=== PATIENT | male | born 1955 | race American Indian/Alaskan Native ===

== ENCOUNTER → 2017-10-23 09:17 | Outpatient (CLI) | payer SELFPAY ==
--- NOTE | 2017-10-23 | DI.RAD.S_ITS ---
PROCEDURE: XR HIP W PEL IF DONE RT 2V INDICATIONS: RIGHT HIP PAIN TECHNIQUE: AP pelvis with lateral view(s) of the right hip(s). COMPARISON: [facility], , PELVIS W UNILATERAL HIP RIGHT, 11/04/2014, 15:43. FINDINGS: Bones: No fractures or dislocations. Pelvic ring appears intact. No suspicious bony lesions. Joint spaces appear maintained. Minimal acetabular lipping bilaterally. Soft tissues: The visualized bowel gas pattern is normal. No suspicious soft tissue calcifications. IMPRESSION: 1. No acute bony abnormality. 2. No apparent interval change from prior exam of 2014. Mild hip joint degeneration is present. Dictated by: Jr Cherry M.D. on 10/23/2017 at 9:43 Approved by: Jr Cherry M.D. on 10/23/2017 at 9:46
== END ==
PROVIDERS: Visit Provider Physician Assistant
DX: M25.551 Pain in right hip (principal); M16.11 Unilateral primary osteoarthritis, right hip
CPT/HCPCS: 73502

== ENCOUNTER → 2018-03-05 14:22 | Outpatient (CLI) | payer OTHER, SELFPAY ==
[2018-03-05 15:03] LABS: Add Manual Diff / Slide Review NO; Basophils Percent Auto 0.9 % (0-2); Eosinophils Percent Auto 2.9 % (2-4); Hemoglobin 15.8 g/dL (13.5-17.5); Lymphocytes Percent Auto 44.4 % (25-40); Mean Corpuscular HGB Conc 34.3 % (30-36); Mean Corpuscular Hemoglobin 32.3 PG (26-34); Mean Corpuscular Volume 94.1 fL (80-100); Monocytes Percent Auto 10.7 % (3-14); Neutrophils Absolute Auto 4000 /uL (1500-7000); Neutrophils Percent Auto 41.1 % (50-75); Platelet Count 297 X10^3/uL (150-400); Red Cell Distribution Width 13.1 % (11.6-14.8); White Blood Cell Count 9.7 X10^3/uL (4.5-11.0)
== END ==
PROVIDERS: Family Provider Internal Medicine; PCP Internal Medicine; Visit Provider Orthopaedic Surgery
DX: Z01.818 Encounter for other preprocedural examination (principal)
CPT/HCPCS: 36415; 85025; 93005

== ENCOUNTER 2018-03-09 10:38 | Day surgery (SDC) | payer OTHER, SELFPAY ==
[2018-03-07 10:48] VITALS: BMI 30.8
[2018-03-09] VITALS (9 sets, daily range): BP systolic 103–141; BP diastolic 51–87; PULSE 59–88; RESP 14–28; TEMP 36–37; O2SAT 90–98; BMI 30.8
--- NOTE | 2018-03-09 | DI.RAD.S_ITS ---
PROCEDURE: XR LUMBAR SPINE 2-3V INDICATIONS: L4-5 MICRODISCECTOMY TECHNIQUE: 2 views of the lumbar spine were acquired. COMPARISON: [facility] [place], CR, XR LUMBAR SPINE FLEXION EXTENSION, 12/14/2017, 14:09. [facility] [place], MR, MR LUMBAR SPINE WITHOUT CONTRAST, 11/14/2017, 10:29. FINDINGS: Intraoperative images demonstrate surgical localization along the posterior aspect of L4-5. Osseous structures demonstrate no visualized fracture. There is trace retrolisthesis of L3 on L4-L4 on L5. IMPRESSION: Intraoperative localization as above. Dictated by: Brisa Liang M.D. on 03/09/2018 at 16:44 Approved by: Brisa Liang M.D. on 03/09/2018 at 16:45
[2018-03-09] MEDS: LACTATED RINGERS 1,000 ML 42 ML IV (11:12)
--- NOTE | 2018-03-09 11:25 | PM.PREOP ---
Pre-operative Note Interval Note History & Physical reviewed/Exam performed by Physician: Yes Changes to H&P: No
[2018-03-09] MEDS: CEFAZOLIN 2 GM/100 ML FROZ.PIGGY IV (11:57)
--- NOTE | 2018-03-09 12:28 | SUR.OPER ---
Prone on spine table, head in foam head support, padded chest and pelvic supports, gel pad at knees, lower legs supported by pillows; nipples, genitalia and toes free of pressure, arms secured on foam padded arm boards at <90 degrees abduction. Tape over blanket at thigh secured to table.
[2018-03-09] MEDS: SODIUM CHLORIDE 0.9% 1,000 ML, GENTAMICIN 80 MG IRR (12:35)
[2018-03-09] MEDS: BUPIVACAINE 0.25% (PF) 8 ML, fentaNYL 100 MCG INJ (12:37)
[2018-03-09] MEDS: THROMBIN (BOVINE) 5,000 UNIT VIAL 5000 UNIT TOP (12:53)
[2018-03-09] MEDS: VANCOMYCIN 1,000 MG VIAL 1000 MG TOP (13:05)
--- NOTE | 2018-03-09 13:19 | PM.OP.1 ---
Operative Date/Time/Diagnoses Date of procedure: 03/09/18 Time of procedure: 13:19 Pre-op diagnosis: L4-5 disc herniation with radiculopathy Post-op diagnosis: same Procedure & Clinicians Procedure: Far lateral right L4-5 diskectomy Use of microscope Placement of epidural catheter Same procedure as scheduled: Yes Indications: [age] year old male with intractable pain from a lumbar disc herniation. They had failed conservative management and requested operative intervention. Risks and benefits of surgery were discussed and appropriate consents were obtained. Surgeon: Brandon Tai E [employer] Specialist: Andree Arreola Anesthesia Type: General Operative Notes Findings: None Closure Type: primary Specimen(s): none sent Estimated Blood Loss (mL): 10 Procedure in detail: Patient was brought to the operating room and intubated on the table. A time-out was performed. There were rolled over the well-padded prone position on the Armando table. The back was prepped and draped in standard sterile fashion. Preoperative antibiotics were given. Using fluoroscopy, a 3 cm incision was made to the well-marked right of the midline at the L4-5 level, just lateral to the pedicles. We used Bovie to come down to and split the fascia. We then used the NuVasive MaXcess dilators with fluoroscopy, docking them over the facet, and then opened our retractors. The soft tissue was cleared off with Bovie, a marker was placed, an x-ray was taken to confirm positioning. We then brought in the microscope. We cleared off the rest of the soft tissue. The very edge of the facet was trimmed down with the bur and we deepened our retractor. We exposed the transverse process and then freed the transverse ligament from the transverse process to the pars to the facet below. This was cleared with bipolar and then peeled back laterally. We cleared through the soft tissue underneath until we could easily identify our nerve root as well as the disc. Bipolar was used to prep the disc. The nerve root was carefully retracted and a scalpel used to perform an annulotomy and a pituitary was used to perform the diskectomy. Most of this was far lateral but there was a component going to the foramen itself that we cleared out. The ball probe was moved through the disc to make sure there were no further loose fragments. In the end we could easily pass the ball probe through the foramen towards the canal and the nerve root was free to manipulate with no pressure on it. The wound was irrigated. An epidural catheter was filled with 100 mcg of fentanyl and 8 mL of 0.25% Marcaine. We slid this up along the nerve root into the canal and advanced it 6 cm cephalad. The retractor was removed and the fascia was closed. The epidural catheter was then injected without resistance and removed. Vancomycin powder was placed in the wound. Superficial and skin were closed. Sterile dressing was placed. The patient was then rolled over, transferred to the stretcher, and brought to recovery room without complications. Complications: none Condition: stable Disposition: PACU Plan for aftercare: Outpatient. Light activity for 2 weeks then begin physical therapy.
--- NOTE | 2018-03-09 13:40 | SUR.PHASEI ---
With waking a more than usual amount of coughing. LS clear. Once awake enough given sips of water that were tolerated well. Coughing quickly lessening.
--- NOTE | 2018-03-09 14:43 | SUR.PHASEII ---
IV d/c'd at this time, catheter intact, pt discharged home
== END 2018-03-09 14:46 | disposition home or self-care (01) ==
PROVIDERS: Family Provider Internal Medicine; PCP Internal Medicine; Visit Provider Orthopaedic Surgery
PROC: (CPT 63030; principal; 2018-03-09 12:15)
DX: M51.16 Intervertebral disc disorders with radiculopathy, lumbar region (principal); M48.062 Spinal stenosis, lumbar region with neurogenic claudication; I10 Essential (primary) hypertension; F33.41 Major depressive disorder, recurrent, in partial remission; Z87.891 Personal history of nicotine dependence
CPT/HCPCS: 63030; 72100; 76000; J0690; J2250; J2405; J2704; J3010

== ENCOUNTER 2018-04-04 14:43 | Inpatient (IN) | payer OTHER, SELFPAY ==
[2018-04-04] VITALS (11 sets, daily range): BP systolic 104–150; BP diastolic 68–93; PULSE 57–84; RESP 10–22; TEMP 36.3–36.7; O2SAT 91–99; BMI 29.4
[2018-04-04] MEDS: LACTATED RINGERS 1,000 ML 42 ML IV (15:21)
--- NOTE | 2018-04-04 15:31 | SUR.PREOP ---
Pt's daughter to call with pt's cholesterol and acid reflux medication
--- NOTE | 2018-04-04 15:39 | PM.PREOP ---
Pre-operative Note Interval Note History & Physical reviewed/Exam performed by Physician: Yes Changes to H&P: No
--- NOTE | 2018-04-04 16:02 | SUR.OPER ---
Prone on padded OR bed, head in foam head support, gel chest rolls, gel pad under knees, pillow under lower legs, toes free of pressure, arms secured on padded arm boards at <90 degrees abduction. Safety belt at thigh.
[2018-04-04] MEDS: CEFAZOLIN 2 GM/100 ML FROZ.PIGGY IV ×2 (16:04→23:35)
--- NOTE | 2018-04-04 16:22 | PM.OP.1 ---
Operative Date/Time/Diagnoses Date of procedure: 04/04/18 Time of procedure: 16:22 Pre-op diagnosis: Postoperative lumbar wound infection Post-op diagnosis: same Procedure & Clinicians Procedure: Irrigation and debridement of lumbar wound infection Same procedure as scheduled: Yes Indications: 62-year-old male had a lumbar discectomy a few weeks ago. He began having some wound drainage. It was felt that he probably had a superficial infection and would best be served by a washout. Risks and benefits of surgery were discussed and appropriate consent obtained. Risks and benefits of surgery were discussed including not limited to medical risk with heart attack, stroke, , DVT, PE, infection, bleeding, scarring, nerve injury with pain numbness weakness paralysis, nonunion, failure to alleviate symptoms, need for further surgery Click Yes if Unassisted: Yes Anesthesia Type: General Operative Notes Findings: None Closure Type: primary Specimen(s): other (Wound culture) Estimated Blood Loss (mL): 5 Procedure in detail: Patient was brought to the operating room and intubated on the stretcher. He was rolled over to the well-padded prone position. Time-out was performed. The back was prepped and draped in the standard sterile fashion. Antibiotics were held for cultures. We bluntly spread open the top of his incision and approximately 2 cc of clear yellowish fluid was released. This was cultured and sent to microbiology. We opened up the remainder of the wound. There was no further drainage. We used a Adkins to sharply debride the soft tissue down to the muscle fascia. I also excised the edge of the top of his surgical wound with a scalpel to have clean edges. The wound was then copiously irrigated. We explored, the muscle fascia was still intact. I did not open this up as this all appeared superficial. The wound was then again copiously irrigated. A drain was placed. Vancomycin powder was placed in the wound. Superficial and skin were closed. Sterile dressing was placed. He was then rolled over, extubated, and brought to recovery room with no complications. Complications: none Condition: stable Disposition: PACU Plan for aftercare: Overnight admission for IV antibiotics. If doing well, probable discharge home on oral antibiotics tomorrow.
[2018-04-04] MEDS: VANCOMYCIN 1,000 MG VIAL 1000 MG TOP (16:24)
[2018-04-04] MEDS: fentaNYL 100 MCG/2 ML INJ 50 MCG IV ×2 (16:50→16:59)
--- NOTE | 2018-04-04 16:53 | SUR.PHASEI ---
Medicated with fentanyl for pain rated 4/10
--- NOTE | 2018-04-04 17:10 | SUR.PHASEI ---
report called, pt transported up on room ar to room 203 left under the care of serg.
--- NOTE | 2018-04-04 17:24 | PC.NURSE ---
Sugey shift note: Received patient at 1720 from PACU s/p I & D lumbar wound by Dr. Tai. Patient awake, alert, pleasant and cooperative. Discussed importance of mobility restrictions such as no heavy lifting, bending or twisting. No nausea. IVF initiated, SCD in place. 4 x 4 Gauze dressing x 2, secured with tegaderm to mid lower back, second dressing to mid right lower back with drain tube. Darci drainage tube without any drainage. Oriented to room, environment, and plan of care. Call light within reach.
[2018-04-04] MEDS: LACTATED RINGERS 1,000 ML 125 ML IV (17:40)
[2018-04-04] MEDS: HYDROCODONE/ACET 5/325 TABLET 2 TAB PO ×2 (17:47→21:43)
[2018-04-04 19:18] LABS: Add Manual Diff / Slide Review NO; Basophils Absolute Auto 100 /uL (0-100); Basophils Percent Auto 1.5 % (0-2); Eosinophils Absolute Auto 100 /uL (0-450); Eosinophils Percent Auto 1.5 % (2-4); Hematocrit 42.3 % (41-53); Hemoglobin 14.2 g/dL (13.5-17.5); Lymphocytes Absolute Auto 2400 /uL (1100-4500); Lymphocytes Percent Auto 29.3 % (25-40); Mean Corpuscular HGB Conc 33.5 % (30-36); Mean Corpuscular Hemoglobin 31.5 PG (26-34); Mean Corpuscular Volume 93.9 fL (80-100); Monocytes Absolute Auto 600 /uL (0-900); Monocytes Percent Auto 7.1 % (3-14); Neutrophils Absolute Auto 5000 /uL (1500-7000); Neutrophils Percent Auto 60.6 % (50-75); Platelet Count 234 X10^3/uL (150-400); Red Blood Cell Count 4.51 X10^6/uL (4.5-5.9); Red Cell Distribution Width 13.1 % (11.6-14.8); White Blood Cell Count 8.2 X10^3/uL (4.5-11.0)
[2018-04-04] MEDS: ATENOLOL 25 MG TABLET PO (19:33)
[2018-04-04 19:38] LABS: C-Reactive Protein Quant < 0.5 mg/dL (<1.0)
[2018-04-04 19:46] LABS: Erythrocyte Sedimentation Rate 7 MM/HR (0-15)
[2018-04-04] MEDS: DOCUSATE 100 MG CAPSULE PO (21:10)
[2018-04-04] MEDS: hydrOXYzine pamoate 25 MG CAPSULE PO (23:39)
[2018-04-05 00:57] VITALS: BP 117/65; PULSE 57; RESP 16; TEMP 36.7; O2SAT 95
[2018-04-05] MEDS: LACTATED RINGERS 1,000 ML 125 ML IV (02:30)
[2018-04-05] MEDS: HYDROCODONE/ACET 5/325 TABLET 2 TAB PO ×2 (02:34→08:13)
[2018-04-05 05:22] VITALS: PULSE 57; RESP 16; TEMP 36.8; O2SAT 97
[2018-04-05 06:48] VITALS: BP 112/68
--- NOTE | 2018-04-05 07:14 | P.PN_ITS ---
Subjective Date Patient Seen: 04/05/18 Time Patient Seen: 07:12 Interval history: Minimal pain. Doing well Exam Vital Signs (past 8 hours): - 04/05/18 00:57 04/05/18 05:22 04/05/18 06:48 Temperature 98.0 F 98.2 F Pulse Rate 57 L 57 L Respiratory Rate 16 16 Blood Pressure 117/65 112/68 Pulse Oximetry 95 97 Oxygen Delivery Method Room Air Oxygen Flow Rate 1 Const Orientation: alert and oriented x3 Back/Spine/Pelvis Other: Dressing clean dry intact. No drain output Objective Labs Result Diagrams: 04/04/18 19:00 Labs: Laboratory Results - last 24 hr 04/04/18 04/04/18 19:00 19:00 WBC 8.2 RBC 4.51 Hgb 14.2 Hct 42.3 MCV 93.9 MCH 31.5 MCHC 33.5 RDW 13.1 Plt Count 234 Neut % (Auto) 60.6 Lymph % (Auto) 29.3 [place] % (Auto) 7.1 Eos % (Auto) 1.5 L Baso % (Auto) 1.5 Neut # (Auto) 5000 Lymph # (Auto) 2400 [place] # (Auto) 600 Eos # (Auto) 100 Baso # (Auto) 100 ESR 7 C-Reactive Protein < 0.5 Assessment & Plan Post-op Postoperative Procedures Operation Date: 04/04/18 15:30 Actual Procedures Side Surgeon p Incision and Drainage Wound/Lumbar Brandon Tai MD he had a normal Gram stain. His infection labs were all normal. I think either had a seroma or a very small superficial infection. Either way he should be treated well with the washout. I am going to discharge him home today on oral antibiotics. We will continue to check cultures over the next few days to make sure nothing grows.
[2018-04-05 07:45] VITALS: BP 107/64; PULSE 68; RESP 18; TEMP 36.8; O2SAT 93
[2018-04-05] MEDS: CEFAZOLIN 2 GM/100 ML FROZ.PIGGY IV (08:12)
[2018-04-05] MEDS: hydrOXYzine pamoate 25 MG CAPSULE PO (08:13)
[2018-04-05] MEDS: ATENOLOL 25 MG TABLET PO (08:14)
--- NOTE | 2018-04-05 08:58 | CM.DANOTE ---
DCP: Case received, EMR reviewed and met with patient. Introduced self and role. DCP template completed with information currently available. Patient is a 62 year old male who admitted yesterday afternoon to the care of the surgical team. PCP: Dr. Denis. Payer: confirmed: [facility]. Patient came to hospital for irrigation and debridement of lumbar wound infection. He had recently had lumbar disectomy, and had noted increased drainage. He is now on antibiotics. Met briefly with patient. Alert and oriented, pleasant. Lives alone, but is independent. 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 Patient has no needs at this time, does not use a walker or a cane. P: DCP to continue to follow. Should be able to go home when he is stable. Sobeida Salinas RN/Energy Consultant
--- NOTE | 2018-04-05 09:29 | PT.IIE ---
Current Diagnoses Cutaneous abscess, unspecified (04/04/18) Surgery Performed Operation Date: 04/04/18 15:30 Actual Procedures p Incision and Drainage Wound/Lumbar - Brandon Tai MD Surgical History Status post arthroscopy Medical History (Last Updated 03/07/18 @ 12:06 by Sarah Myers RN) Depression (Acute ~1979) Dry eye (Acute) Familial adenomatous polyposis (Acute ~2012) HTN (hypertension) (Acute) Liver disease (Acute) Substance abuse (Acute ~1969) Physical Therapy Inpatient Evaluation/Re-Eval M1 PT/OT-IP Prior Functional Status Start: 04/05/18 09:17 Freq: NEEDED Status: Active Protocol: Document 04/05/18 09:15 NFW (Rec: 04/05/18 09:29 [facility] [id number]) Medical Review Prior Functional Status Medical History Reviewed Yes Diet/Fluid Consistency Regular Communication No Problems. Mobility and Gait Independent. Activities of Daily Living and IADL's Independent. Prior Functional Level (Other details) Independent, retired. Drives as needed. Social History Household Members none Living Arrangements House Number of Floors (Floors) One Floor Number of Stairs To Enter/Railing? 3 steps down to his bed room, railing on both sides. Employment Status Retired M2 PT-IP Current Condition Start: 04/05/18 09:17 Freq: NEEDED Status: Active Protocol: Document 04/05/18 09:15 NFW (Rec: 04/05/18 09:29 NF [id number]) Physical Therapy Current Condition Current Condition Evaluation Date 04/05/18 Precautions Lumbar Precautions Log Roll No Twisting Weight Bearing Status Weight Bearing Status Full Weight Bearing M3 PT-IP Subjective Start: 04/05/18 09:17 Freq: NEEDED Status: Active Protocol: Document 04/05/18 09:15 NFW (Rec: 04/05/18 09:29 NF [id number]) Subjective Physical Therapy Visit Type Type Initial Evaluation Visit Start Time 08:50 Visit Stop Time 09:15 Total Visit Minutes 25 Number of CLOTH CHECKER Visits 0 Physical Therapy Visit Comments Patient Comments Ready to go home. Drove to hospital yesterday. Patient Goals Return home on his own. Therapy Pain Assessment Pain When Pain Assessed During Mobility Pain Present Pain Present Denied Pain M4 PT-IP Mobility and Gait Start: 04/05/18 09:17 Freq: NEEDED Status: Active Protocol: Document 02/07/19 09:15 NFW (Rec: 04/05/18 09:29 [facility] [id number]) PT-Bed Mobility Assessment Rolling Type of Rolling Roll to Right Level of Assist Independent Supine to Sit Supine to Sit Independent Scooting Scooting to Edge of Bed Independent PT-Transfer Assessment Sit to and From Stand Sit to and from Stand Independent Equipment Transfer Assistive Device Gait Belt Front Wheeled Walker Transfers Transfer Destination Bed Toilet Transfer Ability Level of Assist Independent Comments Mobility Comments Initially used FWW in transfers then discontinued use and ambulated without any assistive devices. Gait Assessment Gait Gait Assistance Required: Independent Distance (Feet) 120 Assistive Devices Assistive Device Gait Belt Gait Deviations General Gait Pattern Within Normal Limits Stair Climbing Assessment Evaluation Level of Assist On Stairs Independent Devices Stair Climbing Assistive Devices Right Railing Technique/Endurance Stair Climbing Direction Ascend and Descend Stair Climbing Technique Step Over Step Number of Steps Climbed 3 Query Text: Comments Stair Climbing Comments Good form with ascending and descending stairs utilizing handrail as needed. PT-Balance Assessment Sitting Balance and Reactions Static Sitting Balance Ability Normal Dynamic Sitting Balance Ability Normal Standing Balance and Reactions Static Standing Balance Ability Normal Dynamic Standing Balance Ability Normal M5 PT-IP Objective Assessments Start: 04/05/18 09:17 Freq: NEEDED Status: Active Protocol: Document 04/05/18 09:15 NFW (Rec: 04/05/18 09:29 [facility] [id number]) Orientation Orientation/Cognition Level of Alertness Alert Orientation Name Age Birthday Month Date Year Day of Week Place Situation Language Function Ability No Deficits Noted Safety Awareness Understands Safety Issues Memory Description No Deficits Noted Gross Range of Motion Upper Extremity ROM Assessment Within Functional Limits Lower Extremity ROM Assessment Within Functional Limits Strength Lower Extremity Strength Assessment Within Functional Limits Muscle Tone Muscle Tone WNL Yes M6 PT-IP Treatment Start: 04/05/18 09:17 Freq: NEEDED Status: Active Protocol: Document 04/05/18 09:15 NFW (Rec: 04/05/18 09:29 [facility] [id number]) Physical Therapy Treatment Education Education Provided Precautions M7 PT-IP Assessment and Plan Start: 04/05/18 09:17 Freq: NEEDED Status: Active Protocol: Document 04/05/18 09:15 NFW (Rec: 04/05/18 09:29 [facility] [id number]) PT Summary Assessment and Plan Potential Rehabilitation Potential Excellent Status of Condition at Evaluation Stable Summary Progress Towards Goals Goals Met Goals Gait Goal Independent Days to Meet Goals 1 Frequency of Treatment Frequency Of Treatment Discharge Recommendations To Nursing Amount of Assist Needed Independent Discharge Recommendations PT Discharge Recommendations Home
--- NOTE | 2018-04-05 11:04 | PC.NURSE ---
pt preparing for discharge and drain removed - pain well controlled with po vicodin - appetite good, ambulating with sba only- new dressing applied - reviewed poc, and pain rx plan-discharged at this time
--- NOTE | 2018-04-05 11:20 | OT.IP.EVAL ---
Current Diagnoses Cutaneous abscess, unspecified (04/04/18) Surgery Performed Operation Date: 04/04/18 15:30 Actual Procedures p Incision and Drainage Wound/Lumbar - Brandon Tai MD Past Medical History (Last Updated 03/07/18 @ 12:06 by Sarah Myers RN) Depression (Acute ~1979) Dry eye (Acute) Familial adenomatous polyposis (Acute ~2012) HTN (hypertension) (Acute) Liver disease (Acute) Substance abuse (Acute ~1969) Surgical History Status post arthroscopy Occupational Therapy Inpatient Evaluation/Re-Eval M1 PT/OT-IP Prior Functional Status Start: 04/05/18 10:59 Freq: NEEDED Status: Active Protocol: Document 04/05/18 11:00 [facility] (Rec: 04/05/18 11:17 [facility] [id number]) Medical Review Prior Functional Status Medical History Reviewed Yes Diet/Fluid Consistency Regular Communication No Problems. Mobility and Gait Independent. Activities of Daily Living and IADL's Independent. Prior Functional Level (Other details) Independent, retired. Drives as needed. Social History Household Members none Living Arrangements House Number of Floors (Floors) One Floor Number of Stairs To Enter/Railing? 3 steps down to his bed room, railing on both sides. Employment Status Retired M2 OT-IP Current Condition Start: 04/05/18 11:19 Freq: Status: Active Protocol: Document 04/05/18 11:00 [facility] (Rec: 04/05/18 11:17 [facility] [id number]) Occupational Therapy Current Condition Current Condition Evaluation Date 04/05/18 Treatment Diagnosis I and D lumbar wound infection Diagnosis Onset Date 04/04/18 Post Operative Precautions Lumbar Precautions Log Roll No Twisting Limit Bending Lifting Restriction of 10 lbs Gait Belt above Incisional Area M3 OT- IP Subjective and Pain Start: 04/05/18 11:19 Freq: Status: Active Protocol: Document 04/05/18 11:00 [facility] (Rec: 04/05/18 11:17 [facility] [id number]) OT- Subjective Occupational Therapy Visit Type Type Initial Evaluation Visit Start Time 10:45 Visit Stop Time 10:55 Total Visit Minutes 10 Occupational Therapy Visit Comments Patient Comments Pt agreeable to do OT eval. Patient/Caregiver Goals Pt to go home today. OT Pain Assessment Pain When Pain Assessed At Rest Pain Present Pain Present Denied Pain M4 OT- IP ADL's Start: 04/05/18 11:19 Freq: Status: Active Protocol: Document 04/05/18 11:00 [facility] (Rec: 04/05/18 11:17 [facility] [id number]) OT ADL-Dressing General Eval Lower Body Dressing Ability Minimal Assistance Areas Needing Assistance Socks Shoes Assistive Devices Dressing Assistive Devices Ballet Master/Mistress Sock Aid Comments OT Dressing Comments Educated pt on use of LB AED for dressing needs. Pt able to show good safety and understanding for needs. LB AEd given to pt. OT ADL-Toileting Comments OT Toileting Comments Educated pt to either lean over while keeping back precautions or just stand for hygiene needs after bowel movement. M6 OT- IP Functional Cognition Start: 04/05/18 11:19 Freq: Status: Active Protocol: Document 04/05/18 11:00 [facility] (Rec: 04/05/18 11:17 [facility] [id number]) Cognitive Factors Limiting Selfcare Function Cognitive Ability Level of Alertness Alert Patient Orientation Name Place Situation Attention Span Ability Capable of Focused Attention Capable of Sustained Attention Ability to Follow Commands Able to Follow Multi-Step Commands Memory Description No Deficits Noted Safety Awareness Underestimates Need for Assistance Cognitive Comments Cognitive Assessment Comments Pt needing occasional vc to incorporate back precations for ADl needs. OT- Vision and Hearing OT- Hearing Assessment OT- Hearing Assessment WFL M8 OT- IP Objective Assessments Start: 04/05/18 11:19 Freq: Status: Active Protocol: Document 04/05/18 11:00 [facility] (Rec: 04/05/18 11:17 [facility] [id number]) OT Gross Range of Motion Upper Extremity Range of Motion Assessment Within Functional Limits M9 OT- IP Assessment and Plan Start: 04/05/18 11:20 Freq: Status: Active Protocol: Document 04/05/18 11:00 [facility] (Rec: 04/05/18 11:17 [facility] [id number]) OT Summary Assessment and Plan Potential Rehabilitation Potential Good Analytic Complexity at Evaluation Low Summary OT Impairments Functional Cognition Functional Mobility Progress Towards Goals Progressing Toward Goals Assessment Summary Pt low complexity and going home today. Goals Patient/Caregiver Education Goal Demonstrate Post-Op Precautions Caregiver Independent Assisting Patient Days to Meet Goals 1 Frequency of Treatment Frequency Of Treatment Once a Day Treatment Plan OT Treatment Plan Patient/Family Education Discharge Planning Discharge Recommendations OT Discharge Recommendations Home with Assistance
== END 2018-04-05 11:13 | disposition home or self-care (01) | DRG 858 ==
PROVIDERS: Admitting Provider Orthopaedic Surgery; Family Provider Internal Medicine; PCP Internal Medicine; Visit Provider Orthopaedic Surgery
PROC: 0KBF0ZZ Excision of Right Trunk Muscle, Open Approach (ICD-10-PCS; CPT 10180; principal; 2018-04-04 15:30)
DX: T81.41XA Infection following a procedure, superficial incisional surgical site, initial encounter (principal); K21.9 Gastro-esophageal reflux disease without esophagitis
CPT/HCPCS: 85025; 85651; 86140; 87070; 87075; 87205; 97161; 97165; J0330; J0690; J2250; J2405; J2704; J2765; J3010

== ENCOUNTER 2018-08-03 12:45 | Day surgery (SDC) | payer OTHER, SELFPAY ==
[2018-04-04 17:49] VITALS: BMI 29.4
[2018-08-03] MEDS: SODIUM CHLORIDE 0.9% 1,000 ML 200 ML IV ×2 (13:01→13:10)
[2018-08-03 13:02] VITALS: BP 134/81; PULSE 57; RESP 16; TEMP 36.4; O2SAT 95
[2018-08-03 13:03] VITALS: BMI 26.5
--- NOTE | 2018-08-03 13:33 | PM.HP.1 ---
History of Present Illness Date Patient Seen: 08/03/18 Time Patient Seen: 13:33 Chief complaint: [id number] Narrative: Patient is here for screening with a history of FA P Patient History Medical History Depression (Acute ~1979) Dry eye (Acute) Familial adenomatous polyposis (Acute ~2012) HTN (hypertension) (Acute) Liver disease (Acute) Substance abuse (Acute ~1969) Surgical History Status post arthroscopy Family History (Updated 11/18/13 @ 00:00 by Conversion Provider) Brother Age: 72 Heart disease Hypertension High cholesterol Stroke Child Age: 42 Hypertension High cholesterol Father Family history of colon cancer Cancer Heart disease Hypertension High cholesterol Mother Heart disease Hypertension High cholesterol Sister Age: 69 Hypertension High cholesterol Sister Age: 65 Heart disease Stroke Social History household members: none Smoking Status: Never smoker Family & Social History Family History Brother Age: 72 Heart disease Hypertension High cholesterol Stroke Child Age: 42 Hypertension High cholesterol Father Family history of colon cancer Cancer Heart disease Hypertension High cholesterol Mother Heart disease Hypertension High cholesterol Sister Age: 69 Hypertension High cholesterol Sister Age: 65 Heart disease Stroke Social History: household members none Tobacco & Substance use: Smoking Status Never smoker Meds Home Medications Medication Instructions Recorded Confirmed Type atenolol 25 mg PO QDAY #90 tab 08/22/16 04/04/18 Rx atorvastatin 20 mg PO BEDTIME 04/04/18 04/04/18 History cephalexin 500 mg PO QID 04/04/18 04/04/18 History ranitidine HCl 150 mg PO BID 04/04/18 04/04/18 History cephalexin [Keflex] 500 mg PO QID #40 cap 04/05/18 Rx hydrocodone-acetaminophen 1 tab PO Q4HR PRN #20 tab 04/05/18 Rx Allergies Allergy/AdvReac Type Severity Reaction Status Date / Time No Known Drug Allergies Allergy Verified 04/04/18 15:03 Review of Systems Review of Systems All systems reviewed & are unremarkable except as noted in HPI and below Exam Vital Signs (past 8 hours): - 08/03/18 13:02 Temperature 97.6 F Pulse Rate 57 L Respiratory Rate 16 Blood Pressure 134/81 Pulse Oximetry 95 Oxygen Delivery Method Room Air Narrative Exam Narrative: Patient is alert and oriented with no complaints vital signs are stable Lungs clear with no rales or wheezes Heart regular rhythm no murmur abdomen soft and nontender Rectal will be done at time of colonoscopy Assessment & Plan Assessment & Plan narrative: Patient has history of familial polyposis had a colonoscopy about 8 years ago which was negative. He is asymptomatic is here for screening. He has no further questions and understands and agrees to the procedure
--- NOTE | 2018-08-03 13:44 | SUR.OPER ---
Dr. Samuels said, this is a terrible prep, so if we miss some polyps, that's why.
--- NOTE | 2018-08-03 13:55 | PM.OP.ENDO ---
Operative Date/Time/Diagnoses Date of procedure: 08/03/18 Time of procedure: 13:55 Pre-op diagnosis: History of familial polyposis Post-op diagnosis: same Procedure & Clinicians Study performed: Incomplete colonoscopy study up to 50 cm Same procedure as scheduled: No Indications: Patient has a history of familial polyposis he is asymptomatic. Surgeon: Alex Samuels Procedure Notes SCOAP/Timeout: Was done Procedure in detail: Patient was properly identified during surgical pause given a total of 250 micro g of fentanyl and 5 mg of Versed. The flexible fiberoptic colonoscope inserted transanally through the rectum and in well into the sigmoid colon where he has marked severe. Sigmoid diverticulosis. This has caused fixation of the sigmoid and makes negotiating the sigmoid colon very difficult. Furthermore the patient had copious gross solid stool within the sigmoid colon. Despite that I tried to get the scope advanced and could get up to 50 cm into the descending colon. There was more stool there. This is solid stool. It was not liquid. Because of the inadequate prep and fixation of the sigmoid colon I abandoned the procedure to minimize risks of perforating the colon. He tolerated the procedure well no polyps were seen. Scope withdrawal time: 8 Sedation minutes: 20 Findings: diverticulosis Specimen(s): none sent Complications: none Impression: Incomplete colonoscopy. This was because of very inadequate prep. Patient also has severe sigmoid diverticulosis making this a difficult endoscopy. Any future attempts should be done with general anesthetic using propofol. Recommendations: Colonscopy in 1 year Follow up: as needed Disposition: PACU
[2018-08-03] MEDS: MIDAZOLAM 5 MG/5 ML VIAL IV (13:56)
[2018-08-03 13:57] VITALS: BP 119/75; PULSE 60; RESP 20; TEMP 36.6; O2SAT 94
[2018-08-03] MEDS: fentaNYL 250 MCG/5 ML INJ IV (13:57)
[2018-08-03 14:08] VITALS: BP 99/65; PULSE 57; RESP 19; O2SAT 94
== END 2018-08-03 14:37 | disposition home or self-care (01) ==
PROVIDERS: PCP Internal Medicine; Visit Provider Surgery
PROC: 0DJD8ZZ Inspection of Lower Intestinal Tract, Via Natural or Artificial Opening Endoscopic (ICD-10-PCS; CPT 45378; principal; 2018-08-03 13:45)
DX: Z12.11 Encounter for screening for malignant neoplasm of colon (principal); K57.30 Diverticulosis of large intestine without perforation or abscess without bleeding; Z53.09 Procedure and treatment not carried out because of other contraindication; I10 Essential (primary) hypertension; Z83.71 Family history of colonic polyps
CPT/HCPCS: 45378; 99152; J2250; J3010

== ENCOUNTER → 2020-12-18 10:01 | Outpatient (CLI) | payer MEDICARE, SELFPAY ==
[2018-04-04 17:49] VITALS: BMI 29.4
[2020-12-18 10:48] LABS: COVID19 -Nasal RAPID Negative (Negative)
== END ==
PROVIDERS: PCP Internal Medicine; Visit Provider Surgery
DX: Z01.812 Encounter for preprocedural laboratory examination (principal); Z20.822 Contact with and (suspected) exposure to COVID-19
CPT/HCPCS: 87635; C9803

== ENCOUNTER 2020-12-21 08:04 | Day surgery (SDC) | payer MEDICARE, SELFPAY ==
[2018-04-04 17:49] VITALS: BMI 29.4
--- NOTE | 2020-12-21 | PATH_ITS ---
[facility] Accession Number: [id number] . 01 Material submitted: . colon - DESCENDING COLON POLYP . 02 Diagnosis: Descending Colon Polyp, Biopsy: Colonic mucosa with prominent benign lymphoid aggregate. Negative for serrated lesion, dysplasia or malignancy. Additional step sections examined. MRV 12/25/2020 1418 Local . 02 Electronically signed: . Cristino Live MD, PhD, Pathologist NPI- [id number] . 01 Gross description: . DESCENDING COLON POLYP: Received in formalin are 2 fragment(s) of curry, soft tissue measuring 0.6 x 0.4 x 0.2 cm to 0.4 x 0.3 x 0.2 cm submitted entirely in 1 cassette(s) /RAFFAELE 12/22/2020 0359 Local . 02 Pathologist provided ICD-10: K63.5 . 02 CPT . 413828 Performed at: 01 [facility] [address], [place], [place] [id number] MD Beni Echevarria MD Phone: [phone] Performed at: 02 [facility] [address] [place], [place] [id number] MD Ladonna Butler MD Phone: [phone]
[2020-12-21 08:31] VITALS: BP 138/85; PULSE 63; RESP 16; TEMP 36.4; O2SAT 97; BMI 27.6
[2020-12-21] MEDS: LACTATED RINGERS 1,000 ML 42 ML IV (08:46)
--- NOTE | 2020-12-21 09:47 | PM.PREOP ---
Pre-operative Note COVID-19 COVID-19 status: Negative Interval Note History & Physical reviewed/Exam performed by Physician: Yes Changes to H&P: No ASA Class (for procedural sedation): II
[2020-12-21 10:30] VITALS: BP 106/73; PULSE 54; RESP 16; TEMP 36.6; O2SAT 96
--- NOTE | 2020-12-21 10:30 | PM.OP.COLON ---
Operative Date/Time/Diagnoses Date of procedure: 12/21/20 Pre-op diagnosis: History of colon polyps Post-op diagnosis: same Procedure & Clinicians Surgeon: Rafi Owens Procedure Notes Procedure in detail: Impression: The patient was brought to the endoscopy suite, placed in left lateral decubitus position. The patient was connected to monitoring devices. A time-out was performed. Anesthesia was administered. Once the patient was asleep, a digital rectal exam was performed and was normal. The scope was then inserted and advanced to the cecum where the appendiceal orifice was identified and photographed. The scope was then slowly withdrawn over greater than 6 minutes. Mucosa was thoroughly inspected. There was pandiverticulosis. There were 2 small polyps in the descending colon that were removed with cold forceps and sent together as descending colon polyps. The scope was retroflexed in the rectum. No abnormalities were noted. The scope was straightened and removed. The patient was awakened and brought to recovery. EBL 2 mL Findings: divertiulosis and polyp(s) (Two small descending colon polyps) Post-procedure Recommendations: Will call with biopsy results
[2020-12-21 10:35] VITALS: BP 98/72; PULSE 49; RESP 20; O2SAT 97
[2020-12-21 10:40] VITALS: BP 114/71; PULSE 48; RESP 16; O2SAT 96
[2020-12-21 10:56] VITALS: BP 131/86; PULSE 53; RESP 17; TEMP 36.7; O2SAT 97
[2020-12-21 10:58] VITALS: BP 140/85; PULSE 54; RESP 19; TEMP 36.7; O2SAT 97
== END 2020-12-21 10:20 | disposition home or self-care (01) ==
PROVIDERS: PCP Internal Medicine; Referring Provider Surgery; Visit Provider Surgery
PROC: 0DJD8ZZ Inspection of Lower Intestinal Tract, Via Natural or Artificial Opening Endoscopic (ICD-10-PCS; CPT 45378; principal; 2020-12-21 09:15)
DX: Z12.11 Encounter for screening for malignant neoplasm of colon (principal); Z86.010 Personal history of colon polyps; Z80.0 Family history of malignant neoplasm of digestive organs; K21.9 Gastro-esophageal reflux disease without esophagitis; I10 Essential (primary) hypertension; E78.5 Hyperlipidemia, unspecified; K57.30 Diverticulosis of large intestine without perforation or abscess without bleeding; K63.5 Polyp of colon
CPT/HCPCS: 45380; J2704

== ENCOUNTER → 2022-08-31 12:24 | Outpatient (CLI) | payer MEDICARE, SELFPAY ==
[2018-04-04 17:49] VITALS: BMI 29.4
--- NOTE | 2022-08-31 12:29 | DI.RAD.S_ITS ---
PROCEDURE: XR CERVICAL SPINE 4V OR 5V INDICATIONS: RIGHT UPPER EXTREMITY NUMBNESS TECHNIQUE: 5 views of the cervical spine acquired. COMPARISON: None. FINDINGS: Bones: No fractures or dislocations to the C7 level. Straightening of the normal cervical lordosis, a finding which can be seen in the setting of muscle strain and/or spasm. Moderate-severe multilevel degenerative changes with disc height loss, endplate spurring, and facet arthropathy. At least moderate multilevel bony foraminal narrowing present on oblique views. Soft tissues: No prevertebral soft tissue swelling. IMPRESSION: Multilevel degenerative changes of the cervical spine. Dictated by: Daniel Rankin M.D. on 08/31/2022 at 16:24 Approved by: Daniel Rankin M.D. on 08/31/2022 at 16:26
== END ==
PROVIDERS: Referring Provider Family Medicine; Visit Provider Family Medicine
DX: R20.0 Anesthesia of skin (principal); M47.812 Spondylosis without myelopathy or radiculopathy, cervical region
CPT/HCPCS: 72050

== ENCOUNTER → 2022-09-06 08:26 | Outpatient (CLI) | payer MEDICARE, SELFPAY ==
[2018-04-04 17:49] VITALS: BMI 29.4
--- NOTE | 2022-09-06 | DI.MRI.S_ITS ---
PROCEDURE: MR CERVICAL SPINE WO CON INDICATIONS: Other cervical disc degeneration TECHNIQUE: Noncontrast sagittal T1 spin echo and T2 fast spin echo, sagittal STIR, foraminal oblique sagittal T2 fast spin echo, and axial gradient echo or T2 fast spin echo through the cervical spine. COMPARISON: [facility], CR, XR CERVICAL SPINE 4V OR 5V, 08/31/2022, 12:32. FINDINGS: Image quality: This examination is limited by involuntary motion artifact. Alignment and Curvature: There is normal bony alignment. Bone Marrow: Marrow demonstrates normal overall signal. Spinal Cord: Visualized spinal cord has normal size and signal. No cerebellar tonsillar herniation. Paraspinous Soft Tissues: No paravertebral masses. Prevertebral soft tissues are normal in thickness. C2-C3: The disc height and disk signal are relatively well-preserved. A mild degree of generalized disc osteophyte complex is seen. There is at least moderate left-sided and moderate right-sided facet hypertrophy. There is at least moderate bilateral neural foraminal narrowing seen. No significant central canal narrowing is seen. C3-C4: The disc height is well-preserved. Loss of disc signal is seen at this level. Mild to moderate disc osteophyte complex is seen. Prominent facet hypertrophy is seen, left worse than right. There is severe left-sided and moderate to severe right-sided neural foraminal narrowing. Moderate central canal narrowing is seen. There is associated mass effect upon the ventral spinal cord. C4-C5: The disc height is well-preserved. Loss of disc signal is seen at this level. Mild to moderate disc osteophyte complex is seen, which is eccentric to the right. There is prominent right-sided and moderate to prominent left-sided facet hypertrophy. There is severe right-sided and moderate to severe left-sided neural foraminal narrowing. Mild to moderate central canal narrowing is seen at this level. C5-C6: Moderate loss of disc height is seen. Loss of disc signal is seen. Moderate to prominent disc osteophyte complex is seen, which is eccentric to the right. There is a central/right disc osteophyte protrusion seen. Uncovertebral joint hypertrophy is seen at this level. Moderate facet joint hypertrophy is seen. Severe bilateral neural foraminal narrowing can be seen. Moderate to severe central canal narrowing is seen, with associated ventral cord flattening, as on series 4, image 29. C6-C7: Kbre-gn-gattqkaa loss of disc height and disc signal can be seen. At least moderate disc osteophyte complex is seen. There is a central disc osteophyte protrusion present. Uncovertebral joint hypertrophy is seen at this level. At least moderate bilateral facet hypertrophy is seen. Moderate to severe bilateral neural foraminal narrowing can be seen. At least moderate central canal narrowing is seen, with mild associated mass effect upon the ventral spinal cord. C7-T1: The disc height is well-preserved. Loss of disc signal is seen at this level. Mild to moderate disc osteophyte complex is seen, which is eccentric to the right. Moderate facet joint hypertrophy is seen. There is at least moderate right-sided and moderate to severe left-sided neural foraminal narrowing. Mild central canal narrowing is seen. IMPRESSION: Multiple levels of significant cervical spine degenerative change can be seen, which are overall worst at the C5-C6 level. Dictated by: Jack Lawson M.D. on 09/06/2022 at 12:32 Approved by: Jack Lawson M.D. on 09/06/2022 at 12:36
== END ==
PROVIDERS: Referring Provider Family Medicine; Visit Provider Family Medicine
DX: M47.812 Spondylosis without myelopathy or radiculopathy, cervical region (principal); M50.30 Other cervical disc degeneration, unspecified cervical region
CPT/HCPCS: 72141

== ENCOUNTER → 2023-01-11 11:16 | Outpatient (CLI) | payer MEDICARE, OTHER, SELFPAY ==
[2018-04-04 17:49] VITALS: BMI 29.4
[2023-01-11 12:56] LABS: BUN Creatinine Ratio 27.1 (6-22); Blood Urea Nitrogen 23 mg/dL (9-20); Calcium 9.9 mg/dL (8.4-10.2); Carbon Dioxide 24 mmol/L (22-32); Chloride 105 mmol/L (98-107); Estimated Glomerular Filt Rate > 60 mL/min (>60); Glucose 107 mg/dL (80-110); HEMOLYSIS < 15 (0-50); Potassium 4.2 mmol/L (3.4-5.1); Sodium 141 mmol/L (137-145)
== END ==
PROVIDERS: Referring Provider Orthopaedic Surgery Orthopaedic Surgery of the Spine; Visit Provider Orthopaedic Surgery Orthopaedic Surgery of the Spine
DX: Z01.812 Encounter for preprocedural laboratory examination (principal)
CPT/HCPCS: 36415; 80048

== ENCOUNTER 2023-01-16 10:39 | Inpatient (IN) | payer MEDICARE, OTHER, SELFPAY ==
[2018-04-04 17:49] VITALS: BMI 29.4
[2023-01-11 09:30] VITALS: BMI 29.2
[2023-01-16] VITALS (13 sets, daily range): BP systolic 109–153; BP diastolic 66–96; PULSE 15–100; RESP 12–18; TEMP 35.9–37; O2SAT 92–98; BMI 28.7
--- NOTE | 2023-01-16 | DI.RAD.S_ITS ---
PROCEDURE: XR CERVICAL SPINE 2V OR 3V INDICATIONS: ACDF TECHNIQUE: Multiple intraoperative fluoroscopic view(s) of the cervical spine were acquired. COMPARISON: [facility], , XR CERVICAL SPINE 4V OR 5V, 08/31/2022, 12:32. FINDINGS: Bones: Fluoroscopic images demonstrate anterior fusion and discectomy of the lower cervical spine. IMPRESSION: Spot fluoroscopic images of anterior fusion and discectomy of the lower cervical spine. Dictated by: Monae Haskins M.D. on 01/16/2023 at 16:26 Approved by: Monae Haskins M.D. on 01/16/2023 at 16:27
[2023-01-16] MEDS: LACTATED RINGERS 1,000 ML 84 ML IV (11:06)
--- NOTE | 2023-01-16 12:12 | PM.PREOP ---
Pre-operative Note Interval Note History & Physical reviewed/Exam performed by Physician: Yes Changes to H&P: No
[2023-01-16] MEDS: CEFAZOLIN 2 GM/100 ML PREMIX 100 ML IV ×2 (12:30→21:05)
--- NOTE | 2023-01-16 12:53 | SUR.OPER ---
Supine, head on gel donut. Arms padded with gel pads, tucked at sides, towel roll under shoulders. Safety belt at thigh. Legs uncrossed.
[2023-01-16] MEDS: BUPIVACAINE 0.25% (PF) 30 ML, EPINEPHrine 0.15 MG INJ (15:38)
--- NOTE | 2023-01-16 16:03 | PM.OP.1 ---
Operative Date/Time/Diagnoses Date of procedure: 01/16/23 Time of procedure: 12:55 Pre-op diagnosis: 1. C4-5, C5-6, C6-7 spinal stenosis 2. C4-5, C5-6, C6-7 spondylosis with radiculopathy Post-op diagnosis: same Procedure & Clinicians Procedure: 1. C4-5 C5-6 C6-7 anterior cervical diskectomy and fusion 2. C4-5 C5-6 C6-7 anterior interbody cage placement 3. C4-5 C5-6 C6-7 anterior instrumentation with plate and screw placement in C4-C5-C6 and C7 vertebrae 4. Utilization of microsurgical technique and operating microscope Same procedure as scheduled: Yes Indications: Patient has been having chronic neck pain and worsening cervical radiculopathy. He has near constant right hand numbness that is affecting his ability to use his hand along with arm weakness that is progressive. Patient failed multiple conservative management with worsening pain weakness and numbness in his upper extremity. Patient has been having difficulty performing activity of daily living. After discussing risks benefits of treatment options, patient elected proceed with surgery. Surgeon: Anshul Dolan Deep Submergence Vehicle Operator: Juvenal Esteves Click Yes if Unassisted: No Anesthesia Type: General Operative Notes Closure Type: primary Specimen(s): none sent Prosthetic devices, grafts, tissues, transplants, or devices: Globus Extend Plate, Hedron C cages Estimated Blood Loss (mL): 5 Blood products transfused: none Procedure in detail: Patient was seen in the preoperative area. Risks and benefits of the surgery was discussed with the patient. Operative consent was obtained and placed in the chart. Patient was then taken to the operative room. Prophylactic antibiotic was given less than 0.5 hr prior to skin incision. General anesthesia was administered. Patient was placed into a supine position on her radiolucent table. Bilateral shoulders were taped down to allow proper C-arm imaging. Anterior cervical area was prepped and draped in a sterile fashion. Time-out was performed at this time. Using lateral C-arm imaging, the level between C4 and C7 was identified and marked on patient's neck. A oblique incision from midline towards medial border of sternocleidomastoid muscle was made. The platysma muscle was incised in line with skin incision. Metzenbaum scissor was used to develop the plane between the medial border of sternocleidomastoid and the strap muscles medially. The carotid sheath and its contents were identified and protected behind the hand-held retractor during the entire case. The plane between the carotid sheath and strap muscles was developed with Metzenbaum scissors. Dissection was made down to the level of the anterior cervical fascia. Longus colli muscle was incised on the anterior aspect of vertebral bodies bilaterally from C4-C7. Spinal needle was placed into the C4-5 disc space and confirmed with lateral C-arm imaging. Self-retaining retractors were then placed protecting the carotid sheath the sheath laterally and the esophagus medially while exposing the surgical field between C4-C7 vertebrae. Using microsurgical technique and operative microscope, anterior cervical diskectomy was performed at C4-5 C5-6 and C6-7 level. This was done by removing the disc material, removing the anterior and posterior osteophytes posterior longitudinal ligaments along with performing bilateral foraminotomies at all 3 levels. Patient was found to have severe foraminal stenosis at all 3 levels, right worse than left. Patient's stenosis was fully decompressed after decompression was completed. After the diskectomy was completed, 3 anterior interbody cages were obtained. The cages were packed with DBM bone grafting material. One cage each along with the bone grafting material was then packed into the interbody spaces from C4-C7 with one cage into each interbody level. Patient had large anterior osteophytes at C5-C6 and C7 vertebrae. Large osteophytes was removed using Leksell rongeur in order to place anterior cervical plate. After the cages were placed, the anterior cervical plate was stabilized to the C4-C7 vertebrae using 2 screws at each each level. Total 8 screws were placed. After confirming placement of the hardware with AP and lateral C-arm imaging, the screws were locked into the plate using the locking mechanism and torque limiting screwdriver. After the hardware was placed and confirmed with AP and lateral C-arm imaging, the wound was irrigated with sterile normal saline. Hemostasis was accomplished using bipolar cautery. Carotid sheath contents and the esophagus was inspected and visualized and identified to be well protected throughout the entire case prior to closure. Platysma muscle and the subcutaneous tissue was closed with 2-0 Vicryl. The skin was closed with 4-0 Monocryl and Steri-Strips. Patient tolerated the procedure well. Patient was transferred recovery room in stable condition. There were no complications. Complications: none Post-operative Condition: stable Disposition: PACU Plan for aftercare: Admit to inpatient hospital
[2023-01-16] MEDS: ATORVASTATIN 20 MG TABLET PO (21:04)
[2023-01-16] MEDS: DOCUSATE 100 MG CAPSULE PO (21:04)
[2023-01-16] MEDS: SENNOSIDES 8.6 MG TABLET 17.2 MG PO (21:04)
[2023-01-16] MEDS: OXYCODONE IR 5 MG TABLET PO (21:04)
[2023-01-16] MEDS: LOSARTAN 25 MG TABLET PO (21:04)
[2023-01-16] MEDS: LACTATED RINGERS 1,000 ML 125 ML IV (21:09)
[2023-01-16] MEDS: ONDANSETRON 4 MG/2 ML INJ IV (21:20)
[2023-01-17] MEDS: OXYCODONE IR 5 MG TABLET PO ×3 (00:40→11:14)
[2023-01-17] MEDS: CEFAZOLIN 2 GM/100 ML PREMIX 100 ML IV (04:43)
[2023-01-17 04:45] VITALS: BP 143/77; PULSE 72; RESP 19; TEMP 36.4; O2SAT 94
[2023-01-17] MEDS: LACTATED RINGERS 1,000 ML 125 ML IV (05:58)
[2023-01-17] MEDS: ONDANSETRON 4 MG/2 ML INJ IV (06:05)
[2023-01-17] MEDS: HYDROMORPHONE 0.5 MG INJ IV (06:05)
--- NOTE | 2023-01-17 07:51 | PM.PNPO.1 ---
Subjective Subjective Date Patient Seen: 01/17/23 Time Patient Seen: 07:51 Interval history: Pain has been moderate this morning. States he had several episodes of vomiting last night. This pain. No fever chills. Able to eat a few crackers insole water overnight. Exam Vital Signs (past 8 hours): - 01/17/23 04:45 Temperature 97.5 F L Pulse Rate 72 Respiratory Rate 19 Blood Pressure 143/77 H Pulse Oximetry 94 Oxygen Flow Rate 0 Oxygen Delivery Method Nasal Cannula Oxygen Flow Rate 0 Narrative Exam Narrative: 67-year-old male resting comfortably in bed in no apparent distress. Soft collar in place. Dressing Clean, dry, intact.. Motor functions intact by upper extremities. Const General: cooperative and comfortable Nutritional Appearance: average body habitus Orientation: alert Resp Effort & Inspection: normal respiratory effort and able to speak in complete sentences [facility] Medical History (Updated 12/07/20 @ 11:48 by Rafi Owens MD) Personal history of colonic polyps Lumbar radiculopathy GERD (gastroesophageal reflux disease) Hyperlipidemia Dry eye Substance abuse (~1969) Depression (~1979) Liver disease Familial adenomatous polyposis (~2012) HTN (hypertension) Surgical History (Updated 01/11/23 @ 10:09 by Sarah Myers RN) S/P LASIK surgery of both eyes (2022) Hx of colonoscopy (12/21/20) History of surgery (04/04/18) Hx of lumbar discectomy (03/09/18) Status post arthroscopy Family History Brother Age: 77 Heart disease Hypertension High cholesterol Stroke Child Age: 47 Hypertension High cholesterol Father Family history of colon cancer Cancer Heart disease Hypertension High cholesterol Mother Heart disease Hypertension High cholesterol Sister Age: 74 Hypertension High cholesterol Sister Age: 70 Heart disease Stroke Social History household members: none Smoking Status: Never smoker alcohol intake: former Assessment & Plan Post-op Postoperative Procedures: Procedures Operation Date: 01/16/23 12:15 Actual Procedure Side Surgeon p C4-5, C5-6, C6-7 ACDF with anterior instrumentation Anshul Dolan MD Postoperative day: 1 Postoperative status: doing well Postoperative status narrative: Stable status post cervical fusion Postoperative plan narrative: Soft collar for comfort DC home later today
[2023-01-17 08:05] VITALS: BP 145/88; PULSE 73; RESP 18; TEMP 36.4; O2SAT 95
[2023-01-17] MEDS: DOCUSATE 100 MG CAPSULE PO (08:05)
[2023-01-17] MEDS: SODIUM CHLORIDE 0.9% FLUSH 10 ML IV (08:13)
--- NOTE | 2023-01-17 09:00 | OT.IP.EVAL ---
Current Diagnoses Other spondylosis with myelopathy, cervical region (01/16/23) Spinal stenosis, cervical region (01/16/23) Surgery Performed Operation Date: 01/16/23 12:15 Actual Procedures p C4-5, C5-6, C6-7 ACDF with anterior instrumentation - Anshul Dolan MD Past Medical History (Last Updated 12/07/20 @ 11:48 by Rafi Owens MD) Depression (~1979) Dry eye Familial adenomatous polyposis (~2012) GERD (gastroesophageal reflux disease) HTN (hypertension) Hyperlipidemia Liver disease Lumbar radiculopathy Personal history of colonic polyps Substance abuse (~1969) Surgical History (Last Updated 01/11/23 @ 10:09 by Sarah Myers RN) History of surgery (04/04/18) Hx of colonoscopy (12/21/20) Hx of lumbar discectomy (03/09/18) S/P LASIK surgery of both eyes (2022) Status post arthroscopy Occupational Therapy Inpatient Evaluation/Re-Eval M1 PT/OT-IP Prior Functional Status Start: 01/17/23 09:07 Freq: NEEDED Status: Active Protocol: Document 01/17/23 09:00 [facility] (Rec: 01/17/23: [facility] [id number]) Medical Review Prior Functional Status Medical History Reviewed Yes Diet/Fluid Consistency Regular Communication Independent Mobility and Gait Independent and walked without a device and played golf a couple days ago. Activities of Daily Living and IADL's Independent-Pt had pain in his neck and numbness in his right arm. Prior Functional Level (Other details) Pt has a classmate who will check on him a couple times daily. Social History Household Members none Living Arrangements Apartment/Condo Number of Floors (Floors) Two Floors Number of Stairs To Enter/Railing? 14 steps with bilateral rails to get to the bedroom. Home Environment High Toilet,Walk in Shower Home Equipment Long Handled Sponge,Long Handled Shoe Horn,Jet Ski Mechanic,Sock Aid Employment Status Retired M2 OT-IP Current Condition Start: 01/17/23 09:07 Freq: Status: Active Protocol: Document 01/17/23 09:00 [facility] (Rec: 01/17/23: [facility] [id number]) Occupational Therapy Current Condition Current Condition Evaluation Date 01/17/23 Treatment Diagnosis S/P C4-5, C5-6, C6-7 ACDF Diagnosis Onset Date 01/16/23 Post Operative Precautions Cervical Spine Precautions Soft Collar for Comfort,Soft Collar at all Times,Rigid Collar,No Heavy Lifting,Log Roll M3 OT- IP Subjective and Pain Start: 01/17/23 09:07 Freq: Status: Active Protocol: Document 01/17/23 09:00 [facility] (Rec: 01/17/23 [facility] [id number]) OT- Subjective Occupational Therapy Visit Type Type Initial Evaluation Visit Start Time 08:42 Visit Stop Time 09:01 Total Visit Minutes 19 Occupational Therapy Visit Comments Patient Comments Pt agreed to get up. Patient/Caregiver Goals To go home. OT Pain Assessment Pain When Pain Assessed During Mobility Pain Present Pain Present Pain Reported Location Neck Intensity 3 Scale Used Numeric (0 - 10) M4 OT- IP ADL's Start: 01/17/23 09:07 Freq: Status: Active Protocol: Document 01/17/23 09:00 [facility] (Rec: 01/17/23 [facility] [id number]) OT ALK-Flid-[place] General Evaluation Self-Feeding Ability Independent Comments OT Self-Feeding Comments Pt educated to information of dealing with changes in voice and swallowing after ACDF. OT ADL-Grooming General Evaluation Grooming Ability Independent OT ADL-Oral Care Comments Oral Care Comments Educated best to spit into a cup or hinge at his hips to best follow his cervical precautions. OT ADL-Dressing General Eval Lower Body Dressing Ability Independent Areas Needing Assistance Socks Comments OT Dressing Comments Pt has all LB dressing equipment , but able to comfortably cross his legs to adrianne/doff his socks at this time. Pt able to adrianne/doff the soft collar on his own. OT ADL-Toileting Comments OT Toileting Comments Pt not having to go. Suggested pt to take the urinal home to use at night if needed. OT ADL-Bathing Comments OT Bathing Comments Not performed. M5 OT- IP IADL's Start: 01/17/23 09:07 Freq: Status: Active Protocol: Document 01/17/23 09:00 [facility] (Rec: 01/17/23 [facility] [id number]) OT-Instrumental Activities of Daily Living Deficits IADL Deficits Identified No Deficits Home Safety Awareness Awareness of Need for Assistance at Home Good Awareness Ability to Problem Solve Emergency Able to Problem Solve Situations Medication Management Medication Management No Deficits Identified Money Management Money Management No Deficits Identified Meal Preparation Meal Preparation Caregiver Provides Assist Meal Preparation Comments Pt has a friend to assist as needed. Twisting Frame Changer Twisting Frame Changer Caregiver Provides Assist Twisting Frame Changer Comments Pt has a friend to assist as needed. M6 OT- IP Functional Cognition Start: 01/17/23 09:07 Freq: Status: Active Protocol: Document 01/17/23 09:00 [facility] (Rec: 01/17/23 [facility] [id number]) Cognitive Factors Limiting Selfcare Function Cognitive Ability Level of Alertness Alert Patient Orientation Name,Age,Birthday,Month,Date, Year,Day of Week,Place, Situation Attention Span Ability Capable of Focused Attention, Capable of Sustained Attention Ability to Follow Commands Able to Follow Multi-Step Commands Memory Description No Deficits Noted Safety Awareness No Deficits Noted Problem Solving Ability No deficits Noted Cognitive Comments Cognitive Assessment Comments Intact OT- Vision and Hearing OT- Hearing Assessment OT- Hearing Assessment WFL OT- Vision Assessment Visual Acuity Glasses For Reading Visual Attentiveness WFL Occular Pursuits WFL M7 OT- IP Mobility and Balance Start: 01/17/23 09:07 Freq: Status: Active Protocol: Document 01/17/23 09:00 [facility] (Rec: 01/17/23 [facility] [id number]) OT- Bed Mobility Assessment Supine to Sit Supine to Sit Assist Independent Sit to Supine Sit to Supine Assist Independent Scooting Scooting to Edge of Bed Independent Scooting Up and Down in Bed Independent OT-Transfer Assessment Sit to and From Stand Sit to and from Stand Independent Transfers Transfer Ability Independent Technique Transfer Destination Bed,Chair Transfer Technique Stand Step Pivot Devices Transfer Assistive Devices Gait Belt Comments Mobility Comments Pt is independent in the room . OT- Balance Assessment Sitting Balance and Reactions Static Sitting Balance Ability Normal Dynamic Sitting Balance Ability Normal Standing Balance and Reactions Static Standing Balance Ability Normal Dynamic Standing Balance Ability Good M9 OT- IP Assessment and Plan Start: 01/17/23 09:07 Freq: Status: Active Protocol: Document 01/17/23 09:00 [facility] (Rec: 01/17/23 [facility] [id number]) OT Summary Assessment and Plan Potential Rehabilitation Potential Excellent Analytic Complexity at Evaluation Low Summary OT Impairments Pain,Functional Mobility, Bathing Progress Towards Goals Progressing Toward Goals Assessment Summary Pt low complexity and main barrier is pain. Pt has a supportive friend to be checking up on him daily. Pt has all LB dressing equipment form a previous back surgery. Pt to go home with assist when medically stable. Pt feeling woozy BP sitting 140/73, standing 127/75, and sitting 140/73. Goals Dressing Goal Independent Toileting Goal Independent Bathing Goal Independent Toilet Transfer Goal Independent Shower Transfer Goal Independent Days to Meet Goals 1 Frequency of Treatment Frequency Of Treatment Once a Day Treatment Plan OT Treatment Plan ADL Training,Functional Mobility,Patient/Family Education,Discharge Planning Discharge Recommendations OT Discharge Recommendations Home with Assistance Transportation Needs at Discharge Private Vehicle
--- NOTE | 2023-01-17 09:13 | PT.IIE ---
Current Diagnoses Other spondylosis with myelopathy, cervical region (01/16/23) Spinal stenosis, cervical region (01/16/23) Surgery Performed Operation Date: 01/16/23 12:15 Actual Procedures p C4-5, C5-6, C6-7 ACDF with anterior instrumentation - Anshul Dolan MD Surgical History (Last Updated 01/11/23 @ 10:09 by Sarah Myers RN) History of surgery (04/04/18) Hx of colonoscopy (12/21/20) Hx of lumbar discectomy (03/09/18) S/P LASIK surgery of both eyes (2022) Status post arthroscopy Medical History (Last Updated 12/07/20 @ 11:48 by Rafi Owens MD) Depression (~1979) Dry eye Familial adenomatous polyposis (~2012) GERD (gastroesophageal reflux disease) HTN (hypertension) Hyperlipidemia Liver disease Lumbar radiculopathy Personal history of colonic polyps Substance abuse (~1969) Physical Therapy Inpatient Evaluation/Re-Eval M1 PT/OT-IP Prior Functional Status Start: 01/17/23 09:07 Freq: NEEDED Status: Active Protocol: Document 01/17/23 09:17 [facility] (Rec: 01/17/23 09:39 [facility] [id number]) Medical Review Prior Functional Status Medical History Reviewed Yes Diet/Fluid Consistency Regular Communication Pt is able to express all needs. Mobility and Gait Pt ambulated IND. He walks 3x5 miles/day typically. Activities of Daily Living and IADL's IND with all ADLs and IADLs. Social History Household Members none Living Arrangements Apartment/Condo Number of Floors (Floors) Two Floors Number of Stairs To Enter/Railing? no ISSA, 14 steps to second floor Home Environment High Toilet,Walk in Shower Home Equipment Long Handled Sponge,Long Handled Shoe Horn,Septic Tank Servicer,Sock Aid Employment Status Retired Additional Social History Comment Pt has a friend/classmate who will be checking in on him regularly. M1 PT/OT-IP Prior Functional Status Start: 01/17/23 09:16 Freq: NEEDED Status: Active Protocol: Document 01/17/23 09:17 [facility] (Rec: 01/17/23 09:39 [facility] [id number]) Medical Review Prior Functional Status Medical History Reviewed Yes Diet/Fluid Consistency Regular Communication Pt is able to express all needs. Mobility and Gait Pt ambulated IND. He walks 3x5 miles/day typically. Activities of Daily Living and IADL's IND with all ADLs and IADLs. Social History Household Members none Living Arrangements Apartment/Condo Number of Floors (Floors) Two Floors Number of Stairs To Enter/Railing? no ISSA, 14 steps to second floor Home Environment High Toilet,Walk in Shower Home Equipment Long Handled Sponge,Long Handled Shoe Horn,Septic Tank Servicer,Sock Aid Employment Status Retired Additional Social History Comment Pt has a friend/classmate who will be checking in on him regularly. M2 PT-IP Current Condition Start: 01/17/23 09:16 Freq: NEEDED Status: Active Protocol: Document 01/17/23 09:17 [facility] (Rec: 01/17/23 09:39 AB [id number]) Physical Therapy Current Condition Current Condition Evaluation Date 01/17/23 Treatment Diagnosis s/p C4-5, C5-6, C6-7 ACDF with anterior instrumentation Onset Date 01/16/23 M3 PT-IP Subjective Start: 01/17/23 09:16 Freq: NEEDED Status: Active Protocol: Document 01/17/23 09:17 [facility] (Rec: 01/17/23 09:39 AB [id number]) Subjective Physical Therapy Visit Type Type Initial Evaluation Visit Start Time 08:55 Visit Stop Time 09:13 Total Visit Minutes 18 Notes OT is present in room performing eval. Physical Therapy Visit Comments Patient Comments Pt is participating in OT eval , and is agreeable to PT eval to be performed concurrently. Therapy Pain Assessment Pain When Pain Assessed During Mobility Pain Present Pain Present Pain Reported Location Neck Intensity 3 Scale Used Numeric (0 - 10) Pain Management Techniques Distraction M4 PT-IP Mobility and Gait Start: 01/17/23 09:16 Freq: NEEDED Status: Active Protocol: Document 01/17/23 09:17 [facility] (Rec: 01/17/23 09:39 [facility] [id number]) PT-Bed Mobility Assessment Rolling Type of Rolling Log Rolling Level of Assist Independent Supine to Sit Supine to Sit Independent Sit to Supine Sit to Supine Independent Scooting Scooting to Edge of Bed Independent PT-Transfer Assessment Sit to and From Stand Sit to and from Stand Independent,Use of Upper Extremities Equipment Transfer Assistive Device Gait Belt Transfers Transfer Destination Bed,Chair Transfer Technique ambulated Transfer Ability Level of Assist Independent Comments Mobility Comments The pt presents standing in room working with OT. OT reports pt's BP has been dropped but is not orthostatic up to this point. The pt ambulated from chair to other side of bed x10ft without AD and SBA. The pt then performed log roll for bed mobility for sit<>supine and supine<>sit at EOB independently, demonstrating good form and safe mechanics. Once sitting up at EOB, pt ambulates to sink with SBA and doffs and dons cervical collar independently. At this point, OT concluded OT eval and pt continued with remainder of PT eval. The pt ambulated ~150ft with independence demonstrating no gait abnormalities. He also ascended and descended 5x3 steps (15 steps total) with 1 hand rail and SBA, and ambulate ~150ft back to room. At end of session, he returned to chair with all needs met and call light within reach. RN was notified of findings. Gait Assessment Gait Gait Assistance Required: Independent,Standby Assistance Distance (Feet) 300 Able to Maintain Weight Bearing Status Yes During Gait Assistive Devices Assistive Device Gait Belt Gait Deviations General Gait Pattern Within Normal Limits Comments Gait Comments See mobility comments. Stair Climbing Assessment Evaluation Level of Assist On Stairs Standby Assistance Devices Stair Climbing Assistive Devices Right Railing Technique/Endurance Stair Climbing Direction Ascend and Descend Stair Climbing Technique Step Over Step Number of Steps Climbed 3 Query Text: Stair Climbing Set # Repetitions (reps) 5 Comments Stair Climbing Comments See mobility comments. PT-Balance Assessment Sitting Balance and Reactions Static Sitting Balance Ability Normal Dynamic Sitting Balance Ability Normal Standing Balance and Reactions Static Standing Balance Ability Normal Dynamic Standing Balance Ability Good Device Used none M5 PT-IP Objective Assessments Start: 01/17/23 09:16 Freq: NEEDED Status: Active Protocol: Document 01/17/23 09:17 [facility] (Rec: 01/17/23 09:39 AB [id number]) Orientation Orientation/Cognition Level of Alertness Alert Orientation Name,Age,Birthday,Month,Date, Year,Day of Week,Place, Situation Language Function Ability No Deficits Noted Safety Awareness Understands Safety Issues Memory Description No Deficits Noted Gross Range of Motion Upper Extremity ROM Assessment Within Functional Limits Lower Extremity ROM Assessment Within Functional Limits Strength Upper Extremity Strength Assessment Within Functional Limits Lower Extremity Strength Assessment Within Functional Limits M6 PT-IP Treatment Start: 01/17/23 09:16 Freq: NEEDED Status: Active Protocol: Document 01/17/23 09:17 AB (Rec: 01/17/23 09:39 AB [id number]) Physical Therapy Treatment Education Education Provided Post-Op Packet,Safety Brace Education Patient M7 PT-IP Assessment and Plan Start: 01/17/23 09:16 Freq: NEEDED Status: Active Protocol: Document 01/17/23 09:17 AB (Rec: 01/17/23 09:39 AB [id number]) PT Summary Assessment and Plan Potential Rehabilitation Potential Excellent Status of Condition at Evaluation Stable Summary Impairments Pain,ROM,Gait Progress Towards Goals Safe For Discharge Assessment Summary Jeramie Osborn is a 67 year old male patient who is s/p C4-5, C5-6, C6-7 ACDF with anterior instrumentation performed on 01/16/23. Today's PT evaluation revealed the pt is largely independent with all functional mobility, needing only supervision with stairs to ensure safety. He demonstrates good log roll technique and no gait abnormalities or LOB. Based on these findings, the PT recommends discharge to home with assistance for heavier IADLs. The pt may benefit from outpatient PT in the future to improve post operative outcomes as indicated. Goals Bed Mobility Goal Independent Transfer Goal Independent Gait Goal Independent Gait Distance 500 Other Goals Pt to ambulate 500ft independently to demonstrate ability to ambulate community distances. Pt to ascend/descend 14 steps with 1 hand rail independently to show improved LE strength and tolerance to activity. Days to Meet Goals 5 Frequency of Treatment Frequency Of Treatment Discharge Treatment Plan Physical Therapy Treatment Plan Bed Mobility Training,Transfer Training,Gait Training, Therapeutic Exercise,Balance Retraining,Post Op Education, Discharge Planning,Hot or Cold Pack,Neuromuscular Re-ed, Coordination Retraining,Manual Therapy Precautions Cervical Spine Precautions Soft Collar for Comfort,No Heavy Lifting,Log Roll Recommendations To Nursing Amount of Assist Needed Independent,Standby Assistance Discharge Recommendations PT Discharge Recommendations Home,Home with Assistance, Outpatient PT Other Discharge Recommendations Outpatient PT if indicated in the future Transportation Needs at Discharge Private Vehicle
--- NOTE | 2023-01-17 09:52 | P.DS_ITS ---
History of Present Illness History of Present Illness Date Patient Seen: 01/17/23 Time Patient Seen: 09:53 Chief complaint: Cervical Fusion Anterior 01/16 Narrative: See progress note Discharge Providers Provider Date of admission: 01/16/23 10:39 Discharge Date: 01/17/23 Primary care physician: Wilma Mayorga PA-C Consults: 01/16/23 17:14 Consult to Occupational Therapy Evaluate & Treat Comment: Physician Instructions: Evaluate and treat Consult to Physical Therapy Evaluate & Treat Comment: Physician Instructions: Evaluate and Treat Discharge provider: Oleg Gomez PA-C Summary Hospital Course Discharge Diagnosis: . C4-5, C5-6, C6-7 spinal stenosis 2. C4-5, C5-6, C6-7 spondylosis with radiculopathy Hospital Course: 1. C4-5 C5-6 C6-7 anterior cervical diskectomy and fusion 2. C4-5 C5-6 C6-7 anterior interbody cage placement 3. C4-5 C5-6 C6-7 anterior instrumentation with plate and screw placement in C4-C5-C6 and C7 vertebrae 4. Utilization of microsurgical technique and operating microscope Same procedure as scheduled: Yes Indications: Patient has been having chronic neck pain and worsening cervical radiculopathy. He has near constant right hand numbness that is affecting his ability to use his hand along with arm weakness that is progressive. Patient failed multiple conservative management with worsening pain weakness and numbness in his upper extremity. Patient has been having difficulty performing activity of daily living. After discussing risks benefits of treatment options, patient elected proceed with surgery. Surgeon: Anshul Dolan Analysis Or Research Safety Inspector: Juvenal Esteves Click Yes if Unassisted: No Anesthesia Type: General Operative Notes Closure Type: primary Specimen(s): none sent Prosthetic devices, grafts, tissues, transplants, or devices: Globus Extend Plate, Hedron C cages Estimated Blood Loss (mL): 5 Patient admitted to the hospital for the above-mentioned procedure. Patient consented to the same. Patient underwent cervical fusion on January 16, 2023. Patient back in his room recovering well as in stable condition. Patient has vomiting last night and this morning. Patient improving this morning and denies nausea or vomiting. Soft collar for comfort. Keep dressing clean and dry. Multimodal pain management. Discharge home today after PT if safe for home environment. Exam Vital Signs (past 8 hours): - 01/17/23 04:45 01/17/23 08:05 Temperature 97.5 F L 97.6 F Pulse Rate 72 73 Respiratory Rate 19 18 Blood Pressure 143/77 H 145/88 H Pulse Oximetry 94 95 Oxygen Flow Rate 0 0 Oxygen Delivery Method Nasal Cannula Oxygen Flow Rate 0 Narrative Exam Narrative: See progress note PFSH Medical History (Updated 12/07/20 @ 11:48 by Rafi Owens MD) Personal history of colonic polyps Lumbar radiculopathy GERD (gastroesophageal reflux disease) Hyperlipidemia Dry eye Substance abuse (~1969) Depression (~1979) Liver disease Familial adenomatous polyposis (~2012) HTN (hypertension) Surgical History (Updated 01/11/23 @ 10:09 by Sarah Myers RN) S/P LASIK surgery of both eyes (2022) Hx of colonoscopy (12/21/20) History of surgery (04/04/18) Hx of lumbar discectomy (03/09/18) Status post arthroscopy Family History Brother Age: 77 Heart disease Hypertension High cholesterol Stroke Child Age: 47 Hypertension High cholesterol Father Family history of colon cancer Cancer Heart disease Hypertension High cholesterol Mother Heart disease Hypertension High cholesterol Sister Age: 74 Hypertension High cholesterol Sister Age: 70 Heart disease Stroke Social History household members: none Smoking Status: Never smoker alcohol intake: former Discharge Assessment & Plan Assessment and Plan Assessment: Improving status post cervical fusion Plan of Treatment: Multimodal pain management Soft collar for comfort Keep dressing clean and dry Follow up in Orthopedics in 2 weeks Discharge home today after physical therapy if safe for home environment. Discharge Plan Discharge Plan Patient Disposition: Home Discharge orders & Medications Prescriptions: New acetaminophen 325 mg Tablet 650 mg PO Q6H PRN (Reason: Fever/Mild Pain (1-3)) Qty: 60 0RF polyethylene glycol 3350 17 gram Powder In Packet 17 gm PO DAILY PRN (Reason: Constipation) Qty: 20 0RF oxycodone 5 mg Tablet 5 mg PO Q3H PRN (Reason: Pain, Moderate (4-6)) Qty: 30 0RF hydroxyzine pamoate 25 mg Capsule 25 mg PO Q4HR PRN (Reason: Nausea And Vomiting) Qty: 20 0RF Continued atorvastatin 20 mg Tablet 20 mg PO BEDTIME losartan 25 mg Tablet 25 mg PO BEDTIME Follow up/Referrals: Anshul Dolan MD [Physician] - As previously scheduled (Follow up with Oleg Gomez PA-C, on 02/01/2023 @ 2:00 pm at [facility] office in [place].) Wilma Mayorga PA-C [Primary Care Provider] - Diet/Activity/Treatments Diet: Diet as Tolerated Diet comment: Stick to soft, moist foods for the first 3-5 days after surgery. Activity: No lifting more than 10 pounds. Soft collar is for comfort only; you do not need to wear it. Most people feel better wearing it when sitting up or walking around. Some people feel more supported wearing it while sleeping. Okay to take off when eating and showering. Cold/Heat Therapy: Heating pad to back of neck and between shoulder blades as needed for pain. Skin/Wound/Dressing Care Report to your healthcare provider any signs of infection, such as:: chills, fever, night sweats, unusual drainage and unusual redness Dressing: May remove outer dressing if it becomes wet inside and replace with clean, dry gauze. Leave steri strips in place until follow up in office. Visit Report/Discharge Packet Instructions: DI for Prescription Opioid Use, DI for Anterior Cervical Discectomy and Fusion Stand Alone Forms: Patient Portal/API, Stroke Signs & Symptoms, Surgery Discharge Discharge Data Primary Care Provider: Wilma Mayorga
--- NOTE | 2023-01-17 11:00 | CM.DANOTE ---
DCP Assessment Note Patient is a 67yo M following cervical fusion with Dr. Dolan 01/16/23. PCP Wilma Cheney Payer Medicare and [facility] LACQUER SIZER reviewed EMR. PT/OT rec home with assistance. LACQUER SIZER entered room and introduced self and role. Patient sitting in chair. Patient reports he lives alone but his friend is going to come stay with him. Stairs in the house but was able to do stairs with PT. No DME. Patient IADLs/drives at baseline. Reports no needs and feels excited to d/c home. Plan: d/c home today with friend support and friend to transport. No needs identified at this time. CM team will continue to follow as needed. SHERLY Dinero Discharge Planning/Care Management CM Discharge Assessment Start: 01/17/23 10:58 Freq: Status: Active Protocol: Document 01/17/23 10:58 SL (Rec: 01/17/23 11:00 SL [id number]) Discharge Planning Assessment Assigned Weight Shifter SHERLY Domingo DPOA/Assigned Designee Name Clarke Osborn (son) Contact Information [phone] Advance Directives? No Advance Directives on File No History Provided By Patient,Medical Record Prior Living Arrangements Apartment/Condo Household Members none Type of transporation used prior to Drives own vehicle admit Independent with ADL's Yes Is patient alert and oriented? Yes Barriers to Discharge No Discharge Plan Home Transportation Arrangement Friend Referrals Initiated None needed Whiteboard Updated in Patient Room with No name and ext. # of Weight Shifter Review Status In Process Next Review Type Continued Stay Review Pre-Anesthesia Assessment Start: 01/11/23 09:30 Freq: Status: Active Protocol: Document 01/11/23 09:30 CAB (Rec: 01/11/23 10:21 CAB [id number]) Pre-Anesthesia Assessment Preferred Name Jeramie Patient Information Reviewed Via Phone Assessment Assessment Completed With Patient Comment Will do @ next 1-2 days Primary Care Provider Wilma Mayorga Seen Specialist in Last 12 Months Yes Specialist Seen Orthopedist Primary Language Nepali Preferred Language Nepali Sales Outfitter Required No Height 160.02 cm Weight 74.843 kg Body Mass Index (BMI) 29.2 Hearing Ability Normal Visual Assist Magnifying Glass Dentition Type Teeth, Natural Present Barriers to Learning Visual Hx Anesthesia Reactions No Hx Family Anesthesia Reaction No Hx Malignant Hyperthermia No Hx Blood Transfusions No Hx Blood Transfusion Reaction No Anesthesia Review Requested No It Project Lead No alcohol intake former Alcohol Intake Frequency Other: Sober 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 No Does patient have RODRÍGUEZ/SOB No Hx Sleep Apnea No CPAP/BIPAP use not prescribed Currently Taking a Beta Octaviano No Hx Chest Pain No Hx SOB No Hx Syncope or Dizziness No Anti-Coagulant Therapy No Has a Senior Storage Administrator No Cardiac Testing No Hx Pacemaker/ICD No Pacemaker Rep Required? No Cardiac Clearance Received Not Applicable Comment Walks 3.5 miles daily, works out at gym Diet Type At Home Regular Dysphagia No Gastrointestinal Symptoms Reflux Urinary Catheter Present No Hx Urinary Self Catheterization No Diabetes No Hx Drug Resistant Organism No Presence of External or Internal Medical No Devices Received a COVID vaccine? Yes Received all doses? Yes Marital Status Single Lives With none Current Living Arrangements Apartment/Condo Number of Floors (Floors) Two Floors Support System Family,Friend(s) Comment Grandchildren and friend will assist with care at [place] Patient Discharge Plan Description Return Home Comment Pt advised overnight length of stay per surgeon Feels Safe in Current Environment Yes Been Physically Hurt or Threatened By a No Person in Current Environment Do you have thoughts of harming yourself None or others? Are you currently considering suicide? No Do you have a plan to hurt yourself or No Plan others? Do You Have Any Spiritual Beliefs That No May Affect Your HC Choices? Do You Have Any Cultural Practices That No May Affect Your HC Choices? Comment [place] spiritual Who Can We Speak to About Patient's Care Family, friends Identifying Code for Release of Patient Declines to issue Information Health Care Proxy/Next of Kin Chilango Osborn (son) Health Care Proxy Emergency Contact Name Alicia Melendez (daughter) Emergency Contact Advance Directives? No Advance Directives on File No Power of Insurance Job Titles Yes Power of Insurance Job Titles Name Amanda Bello Power of Insurance Job Titles PAC Instructions Medications to take/avoid, Nasal antibiotic,No ETOH/ petroleum product on skin DOS, NPO,Post-op transportation,Pre -surgical wash,Sensory aids, Sturdy shoes/comfortable clothes,Do not bring valuables and remove jewelry
[2023-01-17] MEDS: ACETAMINOPHEN 325 MG TABLET 650 MG PO (11:15)
[2023-01-17] MEDS: ONDANSETRON 4 MG ODT SL (11:15)
== END 2023-01-17 11:53 | disposition home or self-care (01) | DRG 473 ==
PROVIDERS: Admitting Provider Orthopaedic Surgery Orthopaedic Surgery of the Spine; PCP Physician Assistant; Referring Provider Orthopaedic Surgery Orthopaedic Surgery of the Spine; Visit Provider Orthopaedic Surgery Orthopaedic Surgery of the Spine
PROC: 0RG20A0 Fusion of 2 or more Cervical Vertebral Joints with Interbody Fusion Device, Anterior Approach, Anterior Column, Open Approach (ICD-10-PCS; principal; 2023-01-16 12:15)
DX: M48.02 Spinal stenosis, cervical region (principal); M47.22 Other spondylosis with radiculopathy, cervical region; E78.5 Hyperlipidemia, unspecified; I10 Essential (primary) hypertension
CPT/HCPCS: 72040; 76000; 97161; 97165; 97535; C1713; J0171; J0330; J0690; J1100; J1170; J2405; J2704; J3010